=== PATIENT | female | born 1950 | race Native Hawaiian/Other Pacific Islander ===

== ENCOUNTER 2016-11-14 08:19 | Outpatient (CLI) | payer OTHER ==
--- NOTE | 2016-11-14 09:42 | Ultrasound Report ---
RIGHT DIGITAL DIAGNOSTIC MAMMOGRAM with CAD and RIGHT BREAST ULTRASOUND: 11/14/16 08:19:00 CLINICAL: Six month followup of a mammographic nodule. COMPARISON:Report only from [facility] 06/26/16 right mammogram and right breast ultrasound describing a mammographic nodule and a probably benign 5 mm cyst 3 o'clock 7 cm from the nipple. FINDINGS: The breast is heterogeneously dense.No mass, architectural distortion or suspicious calcifications. A previously described nodule is not identified on this exam. Ultrasound of of the right breast (including all four quadrants and the retroareolar area) was performed. A benign cyst at 9 o'clock 2 cm from the nipple measures 5 x 3 x 3 mm and a benign cyst 3 o'clock 4 cm from the nipple measures 6 x 4 x 2 mm. No solid mass or shadowing. IMPRESSION: 2 benign cysts and no suspicious finding. BI-RADS CATEGORY: 2 - - Benign RECOMMENDATION: Routine mammographic screening in one year. ACR BI-RADS MAMMOGRAPHIC CODES: 0 = Needs additional imaging evaluation; 1 = Negative; 2 = Benign; 3 = Probably benign; 4 = Suspicious; 5 = Malignant; 6 = Known biopsy-proven malignancy COMMENT: 1. Dense breast tissue, i.e., adenosis, fibrocystic changes, etc., may obscure an underlying neoplasm. 2. Approximately 10% of cancers are not detected with mammography. 3. A negative mammography report should not delay biopsy if a clinically suspicious mass is present. COMMENT: Patient follow-up letters are generated by our [employer] application.
== END 2016-11-14 08:20 | disposition home or self-care (01) ==
LOC: SPVWC 08:19
PROVIDERS: ATTEND Surgery
DX: N60.01 Solitary cyst of right breast (principal); R92.8 Other abnormal and inconclusive findings on diagnostic imaging of breast
CPT/HCPCS: 76641; G0206

== ENCOUNTER 2017-05-29 08:31 | Outpatient (CLI) | payer OTHER ==
--- NOTE | 2017-05-29 09:24 | Mammography Report ---
BILATERAL DIGITAL SCREENING MAMMOGRAM WITH CAD: 05/29/17 08:31:00 CLINICAL: Routine screening.Breast cancer survivor status post left partial mastectomy. COMPARISON:11/14/16 right mammogram. Previously confirmed right breast cysts. FINDINGS: The breasts are heterogeneously dense, which may obscures small masses. Stable left upper postsurgical scar. The left breast is smaller than the right. Mild skin thickening of the left breast. No mass, suspicious architectural distortion or suspicious calcifications. IMPRESSION: No mammographic evidence of malignancy. Benign post treatment changes in the left breast. BI-RADS CATEGORY: 2 -- Benign RECOMMENDATION: Routine mammographic screening in one year. COMMENT: Patient follow-up letters are generated via our [employer] application.
== END 2017-05-29 08:32 | disposition home or self-care (01) ==
LOC: SPVWC 08:31
PROVIDERS: ATTEND Surgery
DX: Z12.31 Encounter for screening mammogram for malignant neoplasm of breast (principal); I10 Essential (primary) hypertension; F41.9 Anxiety disorder, unspecified; Z85.3 Personal history of malignant neoplasm of breast; Z90.12 Acquired absence of left breast and nipple
CPT/HCPCS: 77067; G0202

== ENCOUNTER 2017-12-25 09:02 | Outpatient (CLI) | payer MEDICARE, OTHER ==
--- NOTE | 2017-12-25 10:21 | Mammography Report ---
RIGHT DIGITAL DIAGNOSTIC MAMMOGRAM with CAD: 12/25/17 09:02:00 CLINICAL: Follow-up right breast tenderness.. COMPARISON:05/29/17 FINDINGS: The breast is heterogeneously dense, which may obscure small masses. No mass, architectural distortion or suspicious calcifications. IMPRESSION: No mammographic evidence of malignancy. BI-RADS CATEGORY: 1 - - Negative RECOMMENDATION: Routine mammographic screening. ACR BI-RADS MAMMOGRAPHIC CODES: 0 = Needs additional imaging evaluation; 1 = Negative; 2 = Benign; 3 = Probably benign; 4 = Suspicious; 5 = Malignant; 6 = Known biopsy-proven malignancy COMMENT: 1. Dense breast tissue, i.e., adenosis, fibrocystic changes, etc., may obscure an underlying neoplasm. 2. Approximately 10% of cancers are not detected with mammography. 3. A negative mammography report should not delay biopsy if a clinically suspicious mass is present. COMMENT: Patient follow-up letters are generated by our [employer] application.
== END 2017-12-25 09:03 | disposition home or self-care (01) ==
LOC: SPVWC 09:02
PROVIDERS: ATTEND Surgery
DX: N64.59 Other signs and symptoms in breast (principal); Z85.3 Personal history of malignant neoplasm of breast

== ENCOUNTER 2018-06-04 09:00 | Outpatient (CLI) | payer MEDICARE ==
--- NOTE | 2018-06-04 10:07 | Mammography Report ---
Screening mammogram: There is mild architectural distortion in the superior left breast related to prior surgical site. The overall breast pattern is generally that of intermediate fibroglandular density in a symmetric distribution. No additional evidence of architectural distortion, mass, or suspicious calcifications noted. No interval change when compared to prior examination dated May 29, 2017. CAD used. Impression: Stable exam. No suspicious findings. Recommendation: Annual mammogram followup. BI-RADS CATEGORY: 2 = Benign ACR BI-RADS MAMMOGRAPHIC CODES: 0 = Needs additional imaging evaluation; 1 = Negative; 2 = Benign; 3 = Probably benign; 4 = Suspicious; 5 = Malignant; 6 = Known biopsy-proven malignancy COMMENT: 1. Dense breast tissue, i.e., adenosis, fibrocystic changes, etc., may obscure an underlying neoplasm. 2. Approximately 10% of cancers are not detected with mammography. 3. A negative mammography report should not delay biopsy if a clinically suspicious mass is present.
== END 2018-06-04 09:01 | disposition home or self-care (01) ==
LOC: SPVWC 09:00
PROVIDERS: ATTEND Surgery
DX: Z12.31 Encounter for screening mammogram for malignant neoplasm of breast (principal); I10 Essential (primary) hypertension; M19.90 Unspecified osteoarthritis, unspecified site; Z90.12 Acquired absence of left breast and nipple; Z90.10 Acquired absence of unspecified breast and nipple
CPT/HCPCS: 77067

== ENCOUNTER 2020-07-13 08:10 | Outpatient (CLI) | payer MEDICARE ==
--- NOTE | 2020-07-13 08:45 | Mammography Report ---
DIGITAL SCREENING MAMMOGRAM WITH CAD, 07/13/2020 INDICATION: Routine screening mammography. SCREENING MAMMOGRAM TECHNIQUE: Digital bilateral 2D mammography was obtained in the craniocaudal and mediolateral obliq ue projections. This examination was interpreted with the benefit of Computer-Aided Detection analysi s. COMPARISON: 05/29/2017 through 06/24/2019. FINDINGS: Breast Density: There are scattered areas of fibroglandular density. There is no evidence of dominant mass, suspicious calcifications or architectural distortion in the r ight breast. Postlumpectomy and radiation changes in the left superior breast are again identified. N o new abnormality is seen. IMPRESSION: No mammographic evidence of malignancy or significant change. Follow up recommendation: Routine yearly BI-RADS Category 2: Benign. A "normal" or negative report should not discourage follow up or biopsy of a clinically significant f inding. A written summary of these findings will be mailed to the patient. The patient will be entered into a mammography reporting system which will generate a reminder letter for the patient's next appointmen t at the appropriate interval. The [employer] recommends yearly mammograms starting at age 40 and continuing as l jassi as a woman is in good health. Breast MRI is recommended for women with an approximate 20-25% or greater lifetime risk of breast cancer, including women with a strong family history of breast or ova tracey cancer or who have been treated for Hodgkin's disease. Signer Name: Rafael Azul MD Signed: 07/13/2020 8:40 AM Workstation Name: [id number]
== END 2020-07-13 08:11 | disposition home or self-care (01) ==
LOC: SPVWC 08:10
PROVIDERS: ATTEND Surgery
DX: Z12.31 Encounter for screening mammogram for malignant neoplasm of breast (principal); N64.89 Other specified disorders of breast
CPT/HCPCS: 77067

== ENCOUNTER 2021-07-21 16:09 | Outpatient (CLI) | payer MEDICARE ==
--- NOTE | 2021-07-22 11:47 | Mammography Report ---
DIGITAL SCREENING MAMMOGRAM WITH CAD, 07/22/2021 CLINICAL INFORMATION / INDICATION: Routine screening mammography. SCREENING MAMMO Z12.31 TECHNIQUE: Digital bilateral 2D mammography was obtained in the craniocaudal and mediolateral obliqu e projections. This examination was interpreted with the benefit of Computer-Aided Detection analysis . COMPARISON: 07/13/2020 FINDINGS: Breast Density: There are scattered areas of fibroglandular density. No dominant mass, suspicious calcifications, or architectural distortion in either breast. IMPRESSION: No mammographic evidence of malignancy. Follow up recommendation: Routine yearly BI-RADS Category 1: Negative. A "normal" or negative report should not discourage follow up or biopsy of a clinically significant f inding. A written summary of these findings will be mailed to the patient. The patient will be entered into a mammography reporting system which will generate a reminder letter for the patient's next appointmen t at the appropriate interval. The [employer] recommends yearly mammograms starting at age 40 and continuing as l jassi as a woman is in good health. Breast MRI is recommended for women with an approximate 20-25% or greater lifetime risk of breast cancer, including women with a strong family history of breast or ova tracey cancer or who have been treated for Hodgkin's disease. Signer Name: Kirby Taveras MD Signed: 07/22/2021 11:42 AM Workstation Name: [id number]
== END 2021-07-21 16:10 | disposition home or self-care (01) ==
LOC: SPVWC 16:09
PROVIDERS: ATTEND Family Medicine
DX: Z12.31 Encounter for screening mammogram for malignant neoplasm of breast (principal)
CPT/HCPCS: 77067